=== PATIENT | female | born 1990 | race Caucasian/White ===

== ENCOUNTER 2020-03-04 08:52 | Inpatient (IN) | payer OTHER ==
[2020-03-04] MEDS ORDERED: ELECTROLYTE-148 SOLN 500 ML IV ONE (09:34)
[2020-03-04] MEDS ORDERED: CITRIC ACID/SODIUM CITRATE 30 ML UNIT-DOSE CUP PO ONE (09:34)
--- NOTE | 2020-03-04 09:44 | HP ---
Past Medical History - Primary Care Physician PCP:: Timmy Le - Admission Chief Complaint: none History of Present Illness: presents for scheduled rpt History Source: Patient Limitations to Obtaining History: Language Barrier ([employer] [facility] site physician) - Past Medical History ...: 4 ...Para: 2 ...Spon : 1 - Past Surgical History Past Surgical History: Yes: Hx Myomectomy: No Hx Transabdominal Cerclage: No - Smoking History Smoking history: Never smoked - Alcohol/Substance Use Hx Alcohol Use: No History of Substance Use: reports: None Home Medications - Allergies Allergies/Adverse Reactions: Allergies Allergy/AdvReac Type Severity Reaction Status Date / Time No Known Allergies Allergy Verified 03/04/20 09:28 - Home Medications Home Medications: Ambulatory Orders Vitamins (Sjr) - 1 tab PO DAILY 03/04/20 Review of Systems Unable to obtain ROS, reason: see hpi Physical Exam - Maternity Constitutional: Yes: Well Nourished, No Distress, Calm Cardiovascular: Yes: WNL Lungs: Clear to auscultation - Abdominal Exam/OB Number of Fetuses: Single Presentation: Vertex Contractions: Yes Regularity: Irregular Intensity: Unaware Monitor Mode: External Heart Rate (range): 135 Accelerations: Uniform Decelerations: None - Vaginal Exam/OB Vaginal Bleeding: No Hemorrhage Risk Assessment - Risk Factors Medium Risk Factors: Yes: Prior , uterine surgery,or multiple laparotomies High Risk Factors: Yes: None Risk Score: 1 Risk Level: Medium Risk Assessment/Plan iup at term for scheduled rpt . consent obtained w [employer] admit and prep for
[2020-03-04 09:53] VITALS: BMI 28.5
[2020-03-04] MEDS: ELECTROLYTE-148 SOLN 1,000 ML IV SCH (09:54)
[2020-03-04] MEDS ORDERED: ceFAZolin SODIUM 1 GM VIAL IVPB ONE (12:28)
[2020-03-04] MEDS ORDERED: OXYTOCIN 10 UNITS/ML VIAL ONE ×2 (12:41→13:23)
[2020-03-04] MEDS ORDERED: ONDANSETRON 4 MG/2 ML VIAL IVPUSH PRN (13:41)
--- NOTE | 2020-03-04 13:47 | OP ---
Operative Note - Note: Operative Date: 03/04/20 Pre-Operative Diagnosis: previous x 2. term Operation: rpt LTCS Findings: live baby girl APGARS 9,9 can x 1 Nl uterus , tubes and ovaries b/l pitocin and methergine x 1 for mild atony good hemostasis [id number] dictation id Post-Operative Diagnosis: Same as Pre-op Surgeon: Colby Rinaldi Take Away Attendant: Bhargav Patel Anesthesiologist/CONTOUR PATH TAPE MILL OPERATOR: Mariam Hooker Anesthesia: Spinal Specimens Removed: placenta Estimated Blood Loss (mls): 700 Operative Report Dictated: Yes
[2020-03-04] MEDS ORDERED: METHYLERGONOVINE MALEATE 0.2 MG/1 ML AMP IM PRN (13:48)
[2020-03-04] MEDS ORDERED: oxyCODONE HCL 5 MG TABLET PO PRN (13:48)
--- NOTE | 2020-03-04 14:14 | OP ---
DATE OF OPERATION: 03/04/2020 PREOPERATIVE DIAGNOSIS: Prior section x2 and a term . POSTOPERATIVE DIAGNOSIS: Prior section x2 and a term . OPERATION: Repeat low transverse section. FINDINGS: Live baby girl, cord around neck x1, 's 9, 9. SURGEON: Colby Rinaldi MD INJECTION MOLDING MACHINE SETTER: OBDULIO Quinones ANESTHESIA: MOLLY Valdez, spinal. ESTIMATED BLOOD LOSS: 700 mL. PROCEDURE: Patient was taken to the operating room, placed on the table in the dorsal supine position after spinal anesthesia was administered and found to be adequate. Patient was then prepped and draped in the usual sterile manner and a Pfannenstiel skin incision was made with a scalpel through the old scar, carried through to the level of the underlying fascia. Fascia was incised in the midline and extended bilaterally with the electrocautery. Fascia was then tented up and dissected from underlying rectus muscles. Rectus muscles were in the midline and peritoneum was entered with the incision extended superiorly and inferiorly with good visualization of bowel and bladder. The bladder blade was inserted after the bladder had been dissected away from the lower uterine segment carefully and, once the exposure was adequate, the lower uterine segment was incised in a transverse fashion with the scalpel and this incision was extended bilaterally with a bandage scissors. The membranes were ruptured. The infant's head was then delivered atraumatically. Nose and mouth were suctioned and cord around neck x1 was reduced. Remainder of the infant was delivered. Delayed cord clamping was done and then the was handed off to the awaiting taker off hemp fiber. The placenta was expressed and the uterus was then exteriorized, cleared of all clots and debris. The lower uterine segment was then closed in a running locking fashion using 0 Biosyn suture. Good hemostasis was noted. The abdomen and pelvis were irrigated with warm sterile saline, removing any clots and debris. Uterus was returned to the abdomen and the gutters were then inspected and cleared of clots and debris. Hemostasis was noted to be good at the lower segment and then the sponge, lap, needle and all instruments were removed from the abdomen and pelvis. The peritoneal layer was closed with running 2-0 chromic suture followed by muscle layer closed with interrupted horizontal mattress sutures of 2-0 chromic. Fascial layer was closed with running No. 1 Vicryl. Subcutaneous fat was approximated with 2-0 plain gut and the skin layer was closed with liana. Sterile dressing was placed over the incision upon completion of the procedure. The uterus was expressed of any clots. The patient had received IV antibiotics preoperatively, intraoperatively received IV Pitocin and a single dose of Methergine was given IM to help attain uterine contraction and good hemostasis. Upon completion of the procedure and after the uterus was evacuated, the patient was then transferred to the recovery room in stable condition and there were no complications. COLBY RINALDI MD [id number]
[2020-03-04] MEDS: OXYTOCIN 20 UNITS in 0.9% NS 20 UNIT/1,000 ML INFUS.BAG IV SCH (14:15)
[2020-03-04] MEDS ORDERED: ACETAMINOPHEN INJECTION 100 ML IVPB ONE (15:10)
[2020-03-04] MEDS ORDERED: KETOROLAC TROMETHAMINE 30 MG/1 ML VIAL ONE (15:11)
[2020-03-04] MEDS ORDERED: oxyCODONE HCL 5 MG TABLET ONE (15:16)
[2020-03-04] MEDS: oxyCODONE HCL 5 MG TABLET PO PRN (15:20)
[2020-03-04] MEDS ORDERED: ACETAMINOPHEN 1000 MG/100 ML VIAL (NON FORMULARY) IVPB ONE (15:22)
[2020-03-04] MEDS ORDERED: KETOROLAC TROMETHAMINE 15 MG/ML VIAL IVPUSH ONE (16:00)
[2020-03-04 17:16] VITALS: O2SAT 98
[2020-03-05] MEDS: SIMETHICONE 80 MG TAB.CHEW (FP) PO PRN ×4 (02:17→21:07)
[2020-03-05] MEDS: ACETAMINOPHEN 325 MG TABLET (FP) PO PRN ×4 (02:17→21:07)
[2020-03-05] MEDS: IBUPROFEN 600 MG TABLET (FP) PO PRN ×5 (02:18→21:08)
[2020-03-05 07:57] LABS: BASO % 0.2 % (0-2.0); EOS % 0.2 % (0-4.5); HEMATOCRIT 29.2 % (32.4-45.2); HEMOGLOBIN 9.7 GM/dL (10.7-15.3); MCH 29.6 pg (25.7-33.7); MCHC 33.3 g/dl (32.0-36.0); MEAN CELL VOLUME 88.9 fl (80-96); MEAN PLT VOLUME 8.4 fl (7.5-11.1); MONO % 5.5 % (3.8-10.2); NEUT % 84.1 % (42.8-82.8); PLATELET COUNT 164 K/MM3 (134-434); RBC 3.29 M/mm3 (3.60-5.2); RDW 13.8 % (11.6-15.6); WHITE BLOOD COUNT 12.9 K/mm3 (4.0-10.0)
--- NOTE | 2020-03-05 12:55 | PROC ---
Procedure Note Procedure: Anesthesia Post op/Pain Pt seen and examined S:Alert and awake, comfortable O: Vital Signs Temperature 98.3 F 03/05/20 10:00 Pulse Rate 78 03/05/20 10:00 Respiratory Rate 20 03/05/20 12:00 Blood Pressure 124/72 03/05/20 10:00 O2 Sat by Pulse Oximetry (%) 98 03/04/20 17:16 CBC, BMP 03/05/20 07:29 A/P: s/p c section Doing well post op Continue current care Sonido Bailey MD
--- NOTE | 2020-03-05 13:39 | PN ---
Post Progress Note - Subjective Subjective: PO day 1 Type of Delivery: Repeat C/S Vital Signs: Vital Signs Temperature 98.3 F 03/05/20 10:00 Pulse Rate 78 03/05/20 10:00 Respiratory Rate 20 03/05/20 12:00 Blood Pressure 124/72 03/05/20 10:00 O2 Sat by Pulse Oximetry (%) 98 03/04/20 17:16 Breast Exam: Yes: Soft Uterus: Yes: Fundus Firm Incision: Yes: Dressing dry and intact Abdomen/GI: Yes: Abdomen soft, Other (no flatus, minimal BS) Lochia, amount: Small Extremities: Yes: Calves non-tender - Labs Labs: CBC WBC 12.9 K/mm3 (4.0-10.0) H 03/05/20 07:29 RBC 3.29 M/mm3 (3.60-5.2) L 03/05/20 07:29 Hgb 9.7 GM/dL (10.7-15.3) L 03/05/20 07:29 Hct 29.2 % (32.4-45.2) L D 03/05/20 07:29 MCV 88.9 fl (80-96) 03/05/20 07:29 MCH 29.6 pg (25.7-33.7) 03/05/20 07: MCHC 33.3 g/dl (32.0-36.0) 03/05/20 07:29 RDW 13.8 % (11.6-15.6) 03/05/20 07:29 Plt Count 164 K/MM3 (134-434) 03/05/20 07:29 MPV 8.4 fl (7.5-11.1) 03/05/20 07:29 Absolute Neuts (auto) 10.9 K/mm3 (1.5-8.0) H 03/05/20 07:29 Neutrophils % 84.1 % (42.8-82.8) H 03/05/20 07:29 Lymphocytes % 10.0 % (8-40) D 03/05/20 07:29 Monocytes % 5.5 % (3.8-10.2) 03/05/20 07: Eosinophils % 0.2 % (0-4.5) 03/05/20 07:29 Basophils % 0.2 % (0-2.0) 03/05/20 07:29 Nucleated RBC % 0 % (0-0) 03/05/20 07:29 Assessment/Plan Postop day 1 ambulate mylicon, dulcolax pain medication
[2020-03-05] MEDS ORDERED: BISACODYL 10 MG SUPP.RECT RC PRN (13:48)
[2020-03-05] MEDS: oxyCODONE HCL 5 MG TABLET PO PRN ×2 (17:22→21:08)
[2020-03-05] MEDS: ELECTROLYTE-148 SOLN 1,000 ML IV SCH (19:55)
[2020-03-05] MEDS: OXYTOCIN 20 UNITS in 0.9% NS 20 UNIT/1,000 ML INFUS.BAG IV SCH (21:05)
[2020-03-06] MEDS: SIMETHICONE 80 MG TAB.CHEW (FP) PO PRN ×3 (02:22→15:41)
[2020-03-06] MEDS: ACETAMINOPHEN 325 MG TABLET (FP) PO PRN ×3 (02:22→15:41)
[2020-03-06] MEDS: IBUPROFEN 600 MG TABLET (FP) PO PRN ×3 (02:23→15:42)
[2020-03-06 11:38] VITALS: BP 104/68; PULSE 89; TEMP 98
--- NOTE | 2020-03-06 13:13 | DS ---
Physical Exam-LINE CREWMAN Vital Signs: Vital Signs Temperature 98.0 F 03/06/20 09:00 Pulse Rate 89 03/06/20 09:00 Respiratory Rate 20 03/06/20 09:00 Blood Pressure 104/68 03/06/20 09:00 O2 Sat by Pulse Oximetry (%) 98 03/04/20 17:16 Constitutional: Yes: No Distress Cardiovascular: Yes: Regular Rate and Rhythm Respiratory: Yes: Regular Gastrointestinal: Yes: Normal Bowel Sounds, Soft Uterus: Yes: Firm ....Post : Yes: Uterus firm, Uterus non-tender Breast(s): Yes: WNL Edema: No Wound/Incision: Yes: Clean/Dry, Naeem Intact Labs: CBC, BMP 03/05/20 07:29 Delivery - Delivery Section: Repeat Type of Anesthesia: Spinal Episiotomy/Laceration: None EBL (cc): 700 Delivery, Single - Stages of Labor Date 1st Stage Initiatied: 03/04/20 Time 1st Stage Initiated: 07:00 Date of Delivery: 03/04/20 Time of Delivery: 12:43 Time Placenta Delivered: 12:46 - Condition of Pulper/Mobile Sales Technician Present: Yes Name: Aretha Burgos Gender: Female Weight: 3.544 kg Position: Right, OT Total Hours ROM (Hrs/Mins): 1 min. - 1 Minute Total Score: 9 5 Minutes Total Score: 9 - Feeding Plan Initial Plan: Elected not to breastfeed exclusively throughout hospitalization Remarks - Remarks Remarks: s/p repeat section stable for discharge +bm, tolerating diet Discharge Summary Problems reviewed: Yes Reason For Visit: Current Active Problems delivery, delivered, current hospitalization (Acute) Condition: Stable - Instructions Diet, Activity, Other Instructions: Make an appointment in clinic in 1 week for staple removal Regular diet Shower every day, use water and soap Referrals: Slade Kovacs MD [Staff Physician] - Disposition: HOME - Home Medications Comprehensive Discharge Medication List: Ambulatory Orders Vitamins (Sjr) - 1 tab PO DAILY 03/04/20 Ibuprofen [Motrin -] 600 mg PO Q4H PRN #30 tablet 03/06/20
--- NOTE | 2020-03-07 18:24 | PATH ---
Surgical Pathology Report Patient Name: BERNIE GEURRA [facility]. Rec. #: [id number] /Age/Gender: 1990 (Age: 29) / F Account: [id number] Location: [facility] OBS/TRIBUNAL MEMBER Taken: 03/04/2020 Received: 03/05/2020 Reported: 03/07/2020 Physicians: Colby Rinaldi M.D. Specimen(s) Received PLACENTA Clinical History Final Diagnosis PLACENTA: THIRD TRIMESTER PLACENTA. TRIVASCULAR CORD. MEMBRANES WITH NO DIAGNOSTIC ABNORMALITIES. Electronically Signed Gabi Gilbert M.D. Gross Description The specimen is received fresh labeled placenta and is a 424 gram, 16.5 x 13.0 x 2.8 cm. placenta with attached membranes and umbilical cord. The attached membranes are [place], translucent with focal opacities and insert marginally. The umbilical cord measures 10 cm. in length and averages 1 cm. in diameter. There is an additional 22 cm in length x 0.1 cm in diameter portion of umbilical cord separately received within the same container. The cord inserts at the margin. No true knots or strictures are identified. Cut surface of the umbilical cord reveals 3 vessels. The surface is allen-blue with minimal fibrin deposition and appropriate caliber vessels. The maternal surface is red-brown with focal defects. Sectioning reveals red-brown, spongy parenchyma. No lesions are identified. Psychologist Educational sections are submitted in three cassettes as follows: 1- membrane rolls and umbilical cord; 2-3- full thickness sections of placenta. /03/06/2020 saudi/03/06/2020
== END 2020-03-06 18:20 | disposition home or self-care (01) | DRG 540 ==
LOC: JLDR 08:52 → J3W 15:50
PROVIDERS: ADMIT Obstetrics & Gynecology; ATTEND Obstetrics & Gynecology
PROC: 10D00Z1 Extraction of Products of Conception, Low, Open Approach (ICD-10-PCS; principal; 2020-03-04 11:00)
DX: O82 Encounter for cesarean delivery without indication (principal); Z3A.39 39 weeks gestation of pregnancy; Z37.0 Single live birth; O34.211 Maternal care for low transverse scar from previous cesarean delivery; O69.81X0 Labor and delivery complicated by cord around neck, without compression, not applicable or unspecified
CPT/HCPCS: 36415; 85025; 86780; 88307-TC; 94760; J0131